=== PATIENT | male | born 1980 | race Caucasian/White ===

== ENCOUNTER 2018-02-07 10:29 | Emergency (ER) | payer BC ==
[~2018-02-07] VITALS: Ht 172.7 cm; Wt 79.4 kg
[2018-02-07 10:38] VITALS: BP 125/70
--- NOTE | 2018-02-07 11:44 | NUR ---
Patient discharged to home in stable condition. Written and verbal after care instructions given. Patient verbalizes understanding of instruction.
== END 2018-02-07 11:44 | disposition home or self-care (01) ==
LOC: ER 10:31
DX: L72.0 Epidermal cyst (principal)
CPT/HCPCS: 99281; A4606; Z7610; Z7502